=== PATIENT | male | born 1980 | race American Indian/Alaskan Native ===

== ENCOUNTER 2017-07-01 21:07 | Inpatient (IN) | payer MEDICAID ==
[2017-07-01 21:57] LABS: BASO # 0.02 K/mm3 (0.0-2.0); BASO % 0.2 % (0.0-3.0); EOS # 0.2 (0.0-0.7); EOS % 2.4 % (1.5-5.0); GRAN # 5.82 (1.4-6.5); HEMATOCRIT 37.9 % (42.0-52.0); LYMPH % 21.8 % (22.0-35.0); MEAN CELL VOLUME 95.2 fl (80.0-105.0); MEAN CORPUSCULAR HEMOGLOBIN 31.4 pg (25.0-35.0); MEAN PLATELET VOLUME 9.5 fl (7.0-11.0); MONO # 1.1 (0.1-0.6); MONO % 11.6 % (1.0-6.0); WHITE BLOOD COUNT 9.1 10^3/ul (4.5-11.0)
--- NOTE | 2017-07-01 22:01 | ED PDOC ---
Arrival/HPI - General Chief Complaint: Psychiatric Evaluation Time Seen by Provider: 07/01/17 21:17 Historian: Patient - History of Present Illness Narrative History of Present Illness (Text): 07/01/17 21:17 Richard Bragg is a 37 year old male who presents to the emergency department complaining of upper lip pain since yesterday. Patient states that his upper lip was sutured yesterday and complains of continued pain. Patient requests to see a renal social worker, he also complains of suicidal ideation and homicidal ideation. Patient denies any fever, chills, chest pain, shortness of breath, nausea, vomiting, diarrhea, urinary symptoms, back pain, neck pain, headache, dizziness, or any other complaints. Time/Duration: 24 hours Symptom Onset: Gradual Symptom Course: Unchanged Activities at Onset: Light Past Medical History - Provider Review Nursing Documentation Reviewed: Yes - Cardiac Hx Hypertension: No - Pulmonary Hx Tuberculosis: No - Neurological Hx Seizures: No - HEENT Hx HEENT Disorder: Yes Other/Comment: wearss corrective glasses "at times" - Renal Hx Renal Disorder: No - Endocrine/Metabolic Hx Endocrine Disorders: No - Hematological/Oncological Hx Cancer: No - Musculoskeletal/Rheumatological Hx Musculoskeletal Disorders: No - Gastrointestinal Hx Gastrointestinal Disorders: No - Genitourinary/Gynecological Hx Sexually Transmitted Diseases: No - Psychiatric Hx Anxiety: Yes Hx Schizophrenia: Yes Hx Substance Use: Yes (pcp) - Anesthesia Hx Anesthesia: No Family/Social History - Physician Review Nursing Documentation Reviewed: Yes Family/Social History: No Known Family HX Smoking Status: Heavy Smoker > 10 Cigarettes Daily Hx Alcohol Use: No Hx Substance Use: Yes (pcp) Allergies/Home Meds Allergies/Adverse Reactions: Allergies No Known Allergies Allergy (Verified 07/02/17 03:07) Review of Systems - Physician Review All systems were reviewed & negative as marked: Yes - Review of Systems Constitutional: absent: Fevers, Night Sweats Eyes: absent: Vision Changes ENT: absent: Hearing Changes Respiratory: absent: SOB, Cough Cardiovascular: absent: Chest Pain Gastrointestinal: absent: Abdominal Pain Genitourinary Male: absent: Dysuria Musculoskeletal: absent: Arthralgias Skin: Other (Upper lip pain ) Neurological: absent: Headache, Dizziness Endocrine: absent: Diaphoresis Hemo/Lymphatic: absent: Adenopathy, Easy Bleeding Psychiatric: Suicidal Ideation, Other (homicidal ideation) Physical Exam Vital Signs Reviewed: Yes Vital Signs Temp Pulse Resp BP Pulse Ox 07/02/17 00:40 88 18 134/78 99 07/01/17 21:22 98.6 F 98 H 16 125/61 95 Temperature: Afebrile Blood Pressure: Normal Pulse: Tachycardic Respiratory Rate: Normal - Systems Exam Head: Present: Atraumatic, Normocephalic Pupils: Present: PERRL Extroacular Muscles: Present: EOMI Conjunctiva: Present: Normal Mouth: No: Normal Lips (sutured laceration to upper lip; superficial laceration with swelling to buccal mucosa ) Neck: Present: Normal Range of Motion Respiratory/Chest: Present: Clear to Auscultation, Good Air Exchange. No: Respiratory Distress, Accessory Muscle Use Cardiovascular: Present: Regular Rate and Rhythm, Normal S1, S2. No: Murmurs Abdomen: Present: Normal Bowel Sounds. No: Tenderness, Distention, Peritoneal Signs Back: Present: Normal Inspection Upper Extremity: Present: Normal Inspection. No: Cyanosis, Edema Lower Extremity: Present: Normal Inspection. No: Edema Neurological: Present: GCS=15, CN II-XII Intact, Speech Normal Skin: Present: Warm, Dry, Normal Color. No: Rashes Psychiatric: Present: Alert, Oriented x 3, Normal Insight, Normal Concentration Medical Decision Making ED Course and Treatment: 07/01/17 22:05 Impression: 37 year old male complaining of upper lip pain since yesterday. Differential Diagnosis included but are not limited to: Plan: -- EKG -- Chest x-ray -- Urinalysis -- Labs -- Keflex and Tylenol -- Reassess and disposition Prior Visits: Notes and results from previous visits were reviewed. Patient was last seen in the emergency department on 06/14/17 for dry skin to both feet and pain to left foot for months, requested foot cream. Patient was discharged home. Progress Notes: - Lab Interpretations Lab Results: 07/01/17 21:49 07/01/17 21:49 Lab Results 07/01/17 21:49: Alcohol, Quantitative < 10 07/01/17 21:49: Salicylates < 1 L, Acetaminophen < 10.0 L 07/01/17 21:49: Sodium 138, Potassium 3.9, Chloride 104, Carbon Dioxide 29, Anion Gap 9 L, BUN 12, Creatinine 1.0, Est GFR ( Amer) > 60, Est GFR (Non -Af Amer) > 60, Random Glucose 103, Calcium 9.1, Total Bilirubin 0.5, AST 36, ALT 55, Alkaline Phosphatase 77, Total Protein 6.9, Albumin 3.8, Globulin 3.1, Albumin/Globulin Ratio 1.2 07/01/17 21:49: WBC 9.1, RBC 3.98, Hgb 12.5 L, Hct 37.9 L, MCV 95.2, MCH 31.4, MCHC 33.0, RDW 14.0, Plt Count 237, MPV 9.5, Gran % 64.0, Lymph % (Auto) 21.8 L , Ponce % (Auto) 11.6 H, Eos % (Auto) 2.4, Baso % (Auto) 0.2, Gran # 5.82, Lymph # 2.0, Ponce # 1.1 H, Eos # 0.2, Baso # 0.02 I have reviewed the lab results: Yes - RAD Interpretation Radiology Orders: 07/01/17 21:35 CHEST PORTABLE [RAD] Stat - Medication Orders Current Medication Orders: Acetaminophen (Tylenol 325mg Tab) 650 mg PO Q6H PRN PRN Reason: Fever >100.4 F Al Hydrox/Mg Hydrox/Simethicone (Maalox Plus 30 Ml) 30 ml PO DAILY PRN PRN Reason: Indigestion / Heartburn Benzocaine (Orajel Pm Maximum Strength) 1 gm MT QID PRN PRN Reason: sore in lip Last Admin: 07/04/17 17:55 Dose: 1 oin Cephalexin Monohydrate (Keflex) 500 mg PO Q6 [facility] PRN Reason: Protocol Stop: 07/07/17 18:01 Last Admin: 07/04/17 17:52 Dose: 500 mg Diphenhydramine HCl (Benadryl) 50 mg PO [facility] Last Admin: 07/04/17 09:15 Dose: 50 mg Diphenhydramine HCl (Benadryl) 50 mg IM Q6H PRN PRN Reason: Agitation Diphenhydramine HCl (Benadryl) 50 mg PO 1600 [facility] Last Admin: 07/04/17 17:52 Dose: 50 mg Haloperidol (Haldol) 5 mg PO Q6H PRN; Protocol PRN Reason: agittion/psychosis Haloperidol Lactate (Haldol) 5 mg IM Q6H PRN; Protocol PRN Reason: severe agitation/aggression Ibuprofen (Motrin Tab) 600 mg PO Q6H PRN PRN Reason: Pain, moderate (4-7) Last Admin: 07/03/17 08:58 Dose: [address] [facility] Pain/Vitals Document 07/03/17 08:58 TW (Rec: 07/03/17 08:58 TW [facility] [place] Pain Reassessment Is This A Pain ReAssessment? Yes Presence of Pain Presence of Pain Yes Pain Scale Used Pain Scale Used Numeric Location Pain Location Body Site mouth Intensity 3 Scale Used Numeric Re-Assess: [facility] Pain/Vitals Document 07/03/17 09:58 TW (Rec: 07/03/17 10:08 TW [facility] Pain Reassessment Is This A Pain ReAssessment? Yes Presence of Pain Presence of Pain Yes Pain Scale Used Pain Scale Used Numeric Location Pain Location Body Site mouthj Intensity 1 Lorazepam (Ativan) 2 mg IM Q6H PRN; Protocol PRN Reason: Agitation Lorazepam (Ativan) 2 mg PO Q6H PRN; Protocol PRN Reason: Agitation Last Admin: 07/02/17 22:36 Dose: 2 mg Behavioural Document 07/02/17 22:36 WP (Rec: 07/02/17 22:36 WP [id number]) Maintenance Maintenance Dose Yes Re-Assess: Reassess Psych Meds Document 07/02/17 23:36 WP (Rec: 07/03/17 00:24 WP [id number]) Reassess Psych Med Effective Lorazepam (Ativan) 1 mg PO [facility] PRN Reason: Protocol Last Admin: 07/04/17 09:26 Dose: Not Given Non-Admin Reason: Patient Refused Lorazepam (Ativan) 2 mg IM Q6H PRN; Protocol PRN Reason: severe agitation Magnesium Hydroxide (Milk Of Magnesia) 30 ml PO DAILY PRN PRN Reason: Constipation Risperidone (Risperdal Tab) 3 mg PO [facility] PRN Reason: Protocol Trazodone HCl (Desyrel) 100 mg PO [facility] Last Admin: 07/03/17 22:08 Dose: Not Given Non-Admin Reason: Patient Refused Discontinued Medications Acetaminophen (Tylenol 325mg Tab) 650 mg PO STAT STA Stop: 07/01/17 21:37 Last Admin: 07/01/17 22:07 Dose: 650 mg MAR Pain/Vitals Document 07/01/17 22:07 RD (Rec: 07/01/17 22:07 RD [id number]) Pain Reassessment Is This A Pain ReAssessment? No Sleep Is patient sleeping during reassessment? No Presence of Pain Presence of Pain Yes Benztropine Mesylate (Cogentin) 1 mg PO [facility] Last Admin: 07/02/17 22:45 Dose: Not Given Non-Admin Reason: Patient Refused Cephalexin Monohydrate (Keflex) 500 mg PO STAT STA PRN Reason: Protocol Stop: 07/01/17 21:37 Last Admin: 07/01/17 22:07 Dose: 500 mg Divalproex Sodium (Depakote Dr(*Bid*)) 500 mg PO [facility] Last Admin: 07/03/17 09:11 Dose: Not Given Non-Admin Reason: Patient Refused Oxcarbazepine (Trileptal) 300 mg PO BID [facility] PRN Reason: Protocol Last Admin: 07/03/17 08:59 Dose: Not Given Non-Admin Reason: Patient Refused Behavioural Document 07/03/17 08:59 TW (Rec: 07/03/17 08:59 TW [id number]) Maintenance Maintenance Dose Yes Risperidone (Risperdal Tab) 1 mg PO [facility] PRN Reason: Protocol Last Admin: 07/02/17 22:46 Dose: Not Given Non-Admin Reason: Patient Refused Risperidone (Risperdal Tab) 1 mg PO STAT STA PRN Reason: Protocol Stop: 07/02/17 12:15 Last Admin: 07/02/17 12:29 Dose: 1 mg Re-Assess: Reassess Psych Meds Document 07/03/17 08:42 TW (Rec: 07/03/17 08:42 TW [id number]) Reassess Psych Med Effective Risperidone (Risperdal Tab) 1 mg PO [facility] PRN Reason: Protocol Last Admin: 07/03/17 09:06 Dose: 1 mg Behavioural Document 07/03/17 09:06 TW (Rec: 07/03/17 09:06 TW [id number]) Maintenance Maintenance Dose Yes Re-Assess: Reassess Psych Meds Document 07/03/17 10:06 TW (Rec: 07/03/17 10:09 TW [id number]) Reassess Psych Med Effective Risperidone (Risperdal Tab) 2 mg PO [facility] PRN Reason: Protocol Last Admin: 07/04/17 09:14 Dose: 2 mg Behavioural Document 07/04/17 09:14 RGO (Rec: 07/04/17 09:14 RGO [id number]) Maintenance Maintenance Dose Yes Re-Assess: Reassess Psych Meds Document 07/04/17 10:14 ABO (Rec: 07/04/17 17:38 ABO [id number]) Reassess Psych Med Effective Risperidone (Risperdal Tab) 2 mg PO 1400 [facility] PRN Reason: Protocol Last Admin: 07/04/17 13:13 Dose: 2 mg Behavioural Document 07/04/17 13:13 RGO (Rec: 07/04/17 13:14 RGO [id number]) Maintenance Maintenance Dose Yes Re-Assess: Reassess Psych Meds Document 07/04/17 14:13 ABO (Rec: 07/04/17 17:38 ABO [id number]) Reassess Psych Med Effective Trazodone HCl (Desyrel) 50 mg PO HS [facility] Last Admin: 07/02/17 22:45 Dose: Not Given Non-Admin Reason: Patient Refused Ziprasidone (Geodon Cap) 20 mg PO TID [facility] PRN Reason: Protocol Ziprasidone (Geodon Cap) 20 mg PO TID [facility] PRN Reason: Protocol Last Admin: 07/02/17 18:36 Dose: 20 mg Re-Assess: Reassess Psych Meds Document 07/02/17 19:36 WP (Rec: 07/02/17 20:25 WP [id number]) Reassess Psych Med Effective - Scribe Statement The provider has reviewed the documentation as recorded by the Scribe Sarah Muniz Provider Scribe Attestation: All medical record entries made by the Scribe were at my direction and personally dictated by me. I have reviewed the chart and agree that the record accurately reflects my personal performance of the history, physical exam, medical decision making, and the department course for this patient. I have also personally directed, reviewed, and agree with the discharge instructions and disposition. Disposition/Present on Arrival - Present on Arrival Any Indicators Present on Arrival: No History of DVT/PE: No History of Uncontrolled Diabetes: No Urinary Catheter: No History of Decub. Ulcer: No History Surgical Site Infection Following: None - Disposition Have Diagnosis and Disposition been Completed?: Yes Diagnosis: Schizoaffective disorder Disposition: HOSPITALIZED Disposition Time: 00:15 Patient Problems: Current Active Problems Problem Status Onset Polysubstance abuse Acute Condition: GOOD
[2017-07-01 22:09] LABS: ALB/GLOB RATIO 1.2 (1.1-1.8); ALKALINE PHOSPHATASE 77 U/L (38-126); ALT/SGPT 55 U/L (7-56); AST/SGOT 36 U/L (17-59); BILIRUBIN,TOTAL 0.5 mg/dL (0.2-1.3); BLOOD UREA NITROGEN 12 mg/dL (7-21); CALCIUM 9.1 mg/dL (8.4-10.5); CARBON DIOXIDE 29 mmol/L (21-33); CHLORIDE 104 mmol/L (98-107); GFR AFRICAN-AMERICAN > 60; GLUCOSE,RANDOM 103 mg/dL (70-110); POTASSIUM 3.9 mmol/L (3.6-5.0); SODIUM 138 mmol/L (132-148); TOTAL PROTEIN 6.9 g/dL (5.8-8.3)
[2017-07-02] MEDS ORDERED: Alum-Mag Hydrox-Simethicone Susp (30 mL) PO PRN (06:08)
[2017-07-02] MEDS ORDERED: Magnesium Hydroxide Susp 30 ml UD PO PRN (06:09)
--- NOTE | 2017-07-02 06:20 | PCM.BM ---
<Giles Romero - Last Filed: 07/02/17 06:17> Treatment Plan Problems - Problems identified on initial assessmt auditory hallucinations Date Initiated: 07/02/17 Time Initiated: 03:00 Assessment reference: NA Status: Active Priority: 1 aggression Date Initiated: 07/02/17 Time Initiated: 03:00 Assessment reference: NA Status: Active Treatment assets and liabiliti Patient Assests: cooperative, ADL independent, cognitively intact Patient Liabilities: financial problems, poor support system, substance abuse, legal issue - Milieu Protocol Maintain good personal hygiene: daily Encourage regular showers, daily Remind patient to perform daily oral care, daily Assist patient to perform ADL's Conduct patient checks and document Observation sheet: Q15 minutes Maintain personal safety: daily Educate patient to report safety concerns to staff, daily Monitor environment for contraband/sharps Medication safety: Monitor for expected outcome, potential side effects: daily, Assess barriers to learning: daily, Assess readiness for medication education: daily Family Contact Family involvement: Family/SO is involved Family contact: Patient agrees to contact Family contact name: Alfonso - Goals for Treatment Patient goals for treatment: To feel better Discharge/Continuing Care - Education Needs Education Needs: Patient Medication, Patient Diagnosis/Disease Process, Patient Coping Skills, Patient Anger Management skills, Patient Placement options, Patient Community resources, Patient Pain - Discharge Discharge Criteria: Free of Homicidal thoughts, Free of agitation <Brett Hood - Last Filed: 07/03/17 10:02> Treatment Plan Problems - Problems identified on initial assessmt auditory hallucinations Priority: 2 aggression Priority: 3 altered thought process Date Initiated: 07/03/17 Time Initiated: 10:01 Assessment reference: NA Status: Active Priority: 1 medication nonadherence Date Initiated: 07/03/17 Time Initiated: 10:02 Assessment reference: NA Status: Active Priority: 4 Discharge/Continuing Care - Discharge Discharge Criteria: Reduction of target symptoms Discharge to:: Home <Sherry Varma - Last Filed: 07/03/17 15:08> - Diagnosis (1) Polysubstance abuse Status: Acute Interventions: 07/03/17 15:08 Monitoring withdrawal symptoms Medical detoxification Pharmacotherapy for alcohol/benzos/opioid dependence Maintaining sobriety Relapse prevention Possible rehabilitation Motivational interviewing 12-step programs: AA meetings (2) Schizoaffective disorder, bipolar type Status: Acute Interventions: 07/03/17 15:08 Psychoeducation/psychotherapy Psychopharmacology/adjustment of medications as needed/ monitoring possible side effects Evaluate pt on daily basis Compliance with medications and follow up appointments Long acting medication if pt is noncompliant with pill form Suicide and homicide risk assessment and prevention, coping strategies, safety plan Relapse prevention Reduction of symptoms Improve functional status Possible assertive community treatment Cognitive behavioral therapy Family involvement Possible social skill training as outpatient
[2017-07-02 06:22] VITALS: O2SAT 100
[2017-07-02 08:25] LABS: BASO # 0.02 K/mm3 (0.0-2.0); BASO % 0.3 % (0.0-3.0); EOS # 0.2 (0.0-0.7); EOS % 2.8 % (1.5-5.0); GRAN # 4.98 (1.4-6.5); GRAN % 65.3 % (50.0-68.0); HEMATOCRIT 39.9 % (42.0-52.0); LYMPH # 1.6 (1.2-3.4); LYMPH % 21.5 % (22.0-35.0); MEAN CELL VOLUME 95.9 fl (80.0-105.0); MEAN CORPUSCULAR HEMOGLOBIN 31.3 pg (25.0-35.0); MEAN CORPUSCULAR HGB CONC 32.6 g/dl (31.0-37.0); MEAN PLATELET VOLUME 9.9 fl (7.0-11.0); MONO # 0.8 (0.1-0.6); MONO % 10.1 % (1.0-6.0); RED CELL DISTRIBUTION WIDTH 14.2 % (11.5-14.5); WHITE BLOOD COUNT 7.6 10^3/ul (4.5-11.0)
--- NOTE | 2017-07-02 08:28 | RAD ---
HISTORY: pes COMPARISON: No prior. FINDINGS: LUNGS: No active pulmonary disease. PLEURA: No significant pleural effusion identified, no pneumothorax apparent. CARDIOVASCULAR: Normal. OSSEOUS STRUCTURES: No significant abnormalities. VISUALIZED UPPER ABDOMEN: Normal. OTHER FINDINGS: None. IMPRESSION: No active disease.
[2017-07-02 08:36] LABS: ALB/GLOB RATIO 1.2 (1.1-1.8); ALKALINE PHOSPHATASE 77 U/L (38-126); ALT/SGPT 36 U/L (7-56); AST/SGOT 33 U/L (17-59); BILIRUBIN,TOTAL 0.6 mg/dL (0.2-1.3); BLOOD UREA NITROGEN 10 mg/dL (7-21); CALCIUM 9.3 mg/dL (8.4-10.5); CARBON DIOXIDE 31 mmol/L (21-33); CHLORIDE 105 mmol/L (98-107); CHOLESTEROL 157 mg/dL (130-200); GFR AFRICAN-AMERICAN > 60; GLUCOSE,RANDOM 90 mg/dL (70-110); POTASSIUM 4.5 mmol/L (3.6-5.0); SODIUM 139 mmol/L (132-148); TOTAL PROTEIN 6.8 g/dL (5.8-8.3)
--- NOTE | 2017-07-02 10:08 | CARD ---
APPROVED REPORT EKG Measurement Heart [id number] <Conclusion> Normal sinus rhythm Incomplete right bundle branch block Left anterior fascicular block
[2017-07-02] MEDS: Divalproex 500 mg DR(BID formulation) PO SCH ×2 (12:29→22:45)
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
[2017-07-03] MEDS: Divalproex 500 mg DR(BID formulation) PO SCH (09:11)
[2017-07-03] MEDS ORDERED: DiphenhydrAMINE 50 mg/ml Inj IM PRN (15:06)
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
[2017-07-04] MEDS ORDERED: Benzocaine 20% Cream(7 gm) MT PRN (09:23)
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
--- NOTE | 2017-07-06 15:30 | CT ---
PROCEDURE: CT HEAD WITHOUT CONTRAST. HISTORY: arm numbness COMPARISON: None available. TECHNIQUE: Axial computed tomography images were obtained through the head/brain without intravenous contrast. Radiation dose: Total exam DLP = 775 mGy-cm. This CT exam was performed using one or more of the following dose reduction techniques: Automated exposure control, adjustment of the mA and/or kV according to patient size, and/or use of iterative reconstruction technique. FINDINGS: HEMORRHAGE: No intracranial hemorrhage. BRAIN: No mass effect or edema. No atrophy or chronic microvascular ischemic changes. VENTRICLES: Unremarkable. No hydrocephalus. CALVARIUM: Unremarkable. PARANASAL SINUSES: Unremarkable as visualized. No significant inflammatory changes. MASTOID AIR CELLS: Unremarkable as visualized. No inflammatory changes. OTHER FINDINGS: None. IMPRESSION: No acute findings
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
[2017-07-10 07:52] VITALS: BP 120/84; PULSE 69; RESP 16; TEMP 98
--- NOTE | 2017-07-10 14:15 | CP.PCM.PCO ---
Physician Communication Note - Physician Communication Note Physician Communication Note: Removed 2 stiched from R wrist
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
== END 2017-07-10 16:00 | disposition home or self-care (01) | DRG 430 ==
LOC: ED 21:07 → ERH 07-02 00:11 → PSYC 07-02 01:28
PROVIDERS: ADMIT Psychiatry & Neurology Psychiatry; ATTEND Psychiatry & Neurology Psychiatry
PROC: 0CQ0XZZ Repair Upper Lip, External Approach (ICD-10-PCS; principal; 2017-07-01)
DX: F25.0 Schizoaffective disorder, bipolar type (principal); F16.20 Hallucinogen dependence, uncomplicated; F12.20 Cannabis dependence, uncomplicated; G56.02 Carpal tunnel syndrome, left upper limb; S01.511A Laceration without foreign body of lip, initial encounter; Y04.0XXA Assault by unarmed brawl or fight, initial encounter; Z87.891 Personal history of nicotine dependence